=== PATIENT | male | born 1980 | race Caucasian/White ===

== ENCOUNTER 2017-11-12 09:43 | Emergency (ER) | payer SELFPAY ==
[2017-11-12] MEDS ORDERED: MAG HYDROX/AL HYDROX/SIMETH 30 ML UDC PO STA (11:26)
[2017-11-12] MEDS ORDERED: MULTIVITAMIN 10 ML in SODIUM CHLORIDE 0.9% 1,000 ML IV STA (11:26)
[2017-11-12] MEDS ORDERED: LIDOCAINE VISCOUS 2% 15 ML UDC MM STA (11:26)
[2017-11-12] MEDS ORDERED: THIAMINE INJ 100 MG, FOLIC ACID INJ 1 MG in SODIUM CHLORIDE 0.9% 100ML 100 ML IV STA (11:26)
[2017-11-12] MEDS ORDERED: MAGNESIUM SULFATE 2 GRAM 2 GM/50 ML BAG IV STA (11:26)
--- NOTE | 2017-11-12 11:29 | ED Physician Documentation ---
PD HPI NVD - Stated complaint Stated Complaint: STOMACH PX/VOMITING - Chief complaint Chief Complaint: Abd Pain - History obtained from History obtained from: Patient - History of Present Illness Timing - onset: How many years ago (2) Timing - duration: Years (2) Timing - details: Gradual onset, Still present Associated symptoms: Abdominal pain, Dizzy, Loss of appetite, Other (diarrhea) Contributing factors: Alcohol use Improved by: Vomiting Similar symptoms before: No diagnosis Recently seen: Not recently seen - Additonal information Additional information: 36-year-old male who reports regular alcohol use for several years following a divorce has had vomiting every day for the past 2 years. He is now come to the emergency department with increased symptoms and pain in the abdomen and chest. He describes the pain as heartburn. He is unable to keep any fluids down today. He has come here from work. He does state that he has tried to stop drinking once previously and this did not work out too well for him. He reports a pint of vodka per day. He is working cutting trees now. Review of Systems Constitutional: denies: Fever Eyes: denies: Decreased vision Ears: denies: Ear pain Nose: denies: Congestion Throat: denies: Sore throat Cardiac: denies: Chest pain / pressure Respiratory: denies: Dyspnea, Cough GI: reports: Abdominal Pain, Nausea, Vomiting, Diarrhea : denies: Dysuria, Frequency Skin: denies: Rash Musculoskeletal: denies: Neck pain, Back pain, Extremity pain Neurologic: denies: Generalized weakness, Focal weakness PD PAST MEDICAL HISTORY - Past Medical History Past Medical History: Yes GI: GERD - Past Surgical History Past Surgical History: Yes - Present Medications Home Medications: Ambulatory Orders Medication Instructions Recorded Confirmed Lorazepam [Ativan] 1 - 2 mg PO Q6HR #30 tablet 11/12/17 Sucralfate [Carafate] 1 gm PO ACHS #30 tablet 11/12/17 - Allergies Allergies/Adverse Reactions: Allergies Allergy/AdvReac Type Severity Reaction Status Date / Time No Known Drug Allergies Allergy Verified 11/12/17 09:58 - Social History Does the pt smoke?: Yes Does the pt drink ETOH?: Yes ETOH Use: Liquor Does the pt have substance abuse?: No - Immunizations Immunizations are current?: No PD ED PE NORMAL - Vitals Vital signs reviewed: Yes - General General: Alert and oriented X 3, No acute distress, Well developed/nourished - HEENT HEENT: Atraumatic, PERRL, EOMI - Neck Neck: Supple, no meningeal sign - Cardiac Cardiac: No murmur, Other (tachy to 110) - Respiratory Respiratory: No respiratory distress, Clear bilaterally - Abdomen Abdomen: Soft, Other (mild LLQ tenderness without garding or rebound. ) - Back Back: No CVA TTP, No spinal TTP - Derm Derm: Normal color, Warm and dry, No rash - Extremities Extremities: No deformity, No edema - Neuro Neuro: Alert and oriented X 3, No motor deficit, No sensory deficit, Normal speech Eye Opening: Spontaneous Motor: Obeys Commands Verbal: Oriented GCS Score: 15 - Psych Psych: Normal mood, Normal affect Results - Vitals Vitals: Vital Signs - 24 hr 11/12/17 11/12/17 11/12/17 09:54 11:42 12:50 Temperature 36 C L Heart Rate 106 H 91 85 Respiratory 18 17 18 Rate Blood Pressure 140/91 H 142/89 H 129/86 H O2 Saturation 97 98 99 11/12/17 14:24 Temperature Heart Rate 90 Respiratory 18 Rate Blood Pressure 129/93 H O2 Saturation 98 Oxygen O2 Source Room air - Labs Labs: Laboratory Tests 11/12/17 11/12/17 11:45 11:45 WBC 5.8 RBC 4.74 Hgb 16.0 Hct 46.4 MCV 97.9 H MCH 33.7 H MCHC 34.5 RDW 13.0 Plt Count 249 MPV 7.4 Neut # (Auto) 3.9 Lymph # (Auto) 1.4 L [place] # (Auto) 0.4 Eos # (Auto) 0.0 Baso # (Auto) 0.0 Absolute Nucleated RBC 0.00 Nucleated RBC % 0.1 Sodium 135 Potassium 3.1 L Chloride 94 L Carbon Dioxide 27 Anion Gap 14.0 H BUN 9 Creatinine 0.6 Estimated GFR (MDRD) 152 Glucose 88 Calcium 9.0 Total Bilirubin 1.4 H AST 213 H ALT 189 H Alkaline Phosphatase 130 H Total Protein 7.6 Albumin 4.4 Globulin 3.2 Albumin/Globulin Ratio 1.4 Lipase 42 Ethyl Alcohol 221.4 Procedures - IVC sono (time) 1120 Bedside IVC sono: IVC measures (cm) (1.34), IVC collapsed c insp (cm) (complete) , Dehydration (est 1 liter deficit) PD MEDICAL DECISION MAKING - ED course Complexity details: reviewed old records, reviewed results, re-evaluated patient , considered differential, d/w patient ED course: 36-year-old male with regular heavy alcohol use has acute alcoholic gastritis and does want to stop drinking. He has improvement in his chest discomfort with use of viscous lidocaine Mylanta. Is given a banana bag intravenously. Alcohol resources are provided by the social security assessor. Patient is improved at the time of discharge and is understanding of the natural history of alcohol withdrawal and the use of Ativan in treating that. - Sepsis Event Vital Signs: Vital Signs - 24 hr 11/12/17 11/12/17 11/12/17 09:54 11:42 12:50 Temperature 36 C L Heart Rate 106 H 91 85 Respiratory 18 17 18 Rate Blood Pressure 140/91 H 142/89 H 129/86 H O2 Saturation 97 98 99 11/12/17 14:24 Temperature Heart Rate 90 Respiratory 18 Rate Blood Pressure 129/93 H O2 Saturation 98 Oxygen O2 Source Room air Departure - Departure Disposition: 01 Home, Self Care Clinical Impression: Alcohol abuse, daily use Gastritis Qualifiers: Gastritis type: alcoholic Chronicity: acute Gastritis bleeding: without bleeding Qualified Code(s): K29.20 - Alcoholic gastritis without bleeding Condition: Stable Instructions: ED Withdrawal Alcohol, ED PUD Vs Gastritis Follow-Up: [facility] [Provider Group] Prescriptions: Lorazepam [Ativan] 1 - 2 mg PO Q6HR #30 tablet Sucralfate [Carafate] 1 gm PO ACHS #30 tablet Comments: Today it appears there are 2 subjects. 1) It appears your stomach and esophagus are irritated by the alcohol. Discontinue the use of the alcohol and use the Carafate before meals and at bedtime on a regular basis for 1 week. Use Pepcid AC once per day on a regular basis for the next week. This all should make your stomach pain and vomiting improve. 2) For the alcohol withdrawal symptoms you will likely need the Ativan. Take this as needed for shakes and irritability. This is a strong sedative and you will not be able to drive or operate machinery after taking this. Plan to stay at home and do not plan to work. Forms: Activity restrictions Discharge Date/Time: 11/12/17 14:52
[2017-11-12 11:55] LABS: BASOPHILS % (AUTO) 0.8 %; EOSINOPHILS % (AUTO) 0.6 %; LYMPHOCYTES # (AUTO) 1.4 10^3/uL (1.5-3.5); MEAN CORPUSCULAR HEMOGLOBIN 33.7 pg (27.0-31.0); MEAN CORPUSCULAR HGB CONC 34.5 g/dL (32.0-36.0); MEAN CORPUSCULAR VOLUME 97.9 fL (80.0-94.0); MEAN PLATELET VOLUME 7.4 fL (7.4-11.4); MONOCYTES # (AUTO) 0.4 10^3/uL (0.0-1.0); MONOCYTES % (AUTO) 6.4 %; NEUTROPHILS # (AUTO) 3.9 10^3/uL (1.5-6.6); NEUTROPHILS % (AUTO) 67.2 %; PLT - PLATELET COUNT 249 10^3/uL (130-450); RED BLOOD COUNT 4.74 10^6/uL (4.70-6.10); WHITE BLOOD COUNT 5.8 x10^3/uL (4.8-10.8)
[2017-11-12 12:28] LABS: ALBUMIN 4.4 g/dL (3.2-5.5); ALBUMIN/GLOBULIN RATIO 1.4 (1.0-2.2); BILIRUBIN,TOTAL 1.4 mg/dL (0.2-1.0); CREATININE 0.6 mg/dL (0.6-1.2); TOTAL PROTEIN 7.6 g/dL (6.7-8.2)
[2017-11-12] MEDS ORDERED: PANTOPRAZOLE 40 MG VIAL IVP STA (13:09)
[2017-11-12] MEDS ORDERED: POTASSIUM BICARB 25 MEQ TABLET PO STA (13:09)
[2017-11-12 14:24] VITALS: BP 129/93
== END 2017-11-12 14:52 | disposition home or self-care (01) ==
LOC: ED 09:43
DX: F10.10 Alcohol abuse, uncomplicated (principal); K29.20 Alcoholic gastritis without bleeding; E86.0 Dehydration; F17.200 Nicotine dependence, unspecified, uncomplicated
CPT/HCPCS: 36415; 80053; 80320; 83690; 85025; 96361; 96365; 96366; 96368; 99283; 99284; A9270; J3411